=== PATIENT | female | born 1930 | race Caucasian/White ===

== ENCOUNTER 2017-10-21 19:46 | Inpatient (IN) | payer MEDICARE, OTHER ==
[2017-10-21 20:31] LABS: #Lymphocytes 1.3 thou/uL (1.20-3.40); #Monocytes 0.7 thou/uL (0.11-0.59); #Neutrophils 9.3 thou/uL (1.40-6.50); %Basophils 0.2 % (0.0-1.0); %Eosinophils 0.3 % (0.0-10.0); %Lymphocytes 11.7 % (21.0-51.0); %Monocytes 6.2 % (0.0-10.0); %Neutrophils 81.7 % (42.0-75.0); Hemoglobin 13.5 g/dL (12.0-16.0); Mean Corpuscular Hemoglobin 29.9 pg (27.0-31.0); Mean Corpuscular Volume 90.5 fL (78.0-98.0); Mean Platelet Volume 6.6 fL (7.4-10.4); Platelet Count 206 thou/uL (130-400); RBC Distribution Width 11.8 % (11.5-14.5); Red Blood Cell (RBC) Count 4.51 mill/uL (4.20-5.40); White Blood Cell (WBC) Count 11.4 thou/uL (4.8-10.8)
[2017-10-21] MEDS ORDERED: Dextrose 50% Abboject 50 ML SYRINGE SLOW IVP PRN (20:36)
[2017-10-21] MEDS ORDERED: Ondansetron ODT 4 MG TAB PO PRN (20:36)
[2017-10-21] MEDS ORDERED: Dextrose 5% in Water 1,000 ML IV PRN (20:36)
[2017-10-21] MEDS ORDERED: Ondansetron HCl/PF 4 MG/2 ML Vial IVP PRN (20:36)
[2017-10-21 20:38] LABS: INR-International Normal Ratio 1.1; PTT 25.5 SEC (22.9-36.1); Prothrombin Time 14.2 SEC (12.0-14.7)
[2017-10-21] MEDS ORDERED: hydrALAZINE 20 MG/ML VIAL SLOW IVP PRN (20:38)
[2017-10-21 20:52] LABS: ALT (SGPT) 16 U/L (8-55); AST (SGOT) 20 U/L (5-34); Albumin 4.4 g/dL (3.4-4.8); Alkaline Phosphatase 71 U/L (40-150); Anion Gap 13 mmol/L (10-20); BUN (Urea Nitrogen) 21 mg/dL (9.8-20.1); Bilirubin, Total 1.6 mg/dL (0.2-1.2); Calc. Creatinine Clearance 0 mL/min (70-130); Calcium 9.5 mg/dL (7.8-10.44); Carbon Dioxide 25 mmol/L (23-31); Chloride 108 mmol/L (98-107); Estimated GFR-MDRD 51; Globulin 2.7 g/dL (2.4-3.5); Glucose 105 mg/dL (83-110); Protein, Total 7.1 g/dL (6.0-8.3); Sodium 142 mmol/L (136-145)
[2017-10-21 21:02] LABS: CKMB 1.2 ng/mL (0-6.6); Troponin I Less than 0.010 ng/mL (< 0.028)
[2017-10-21] MEDS: Senokot S 8.6-50 MG TAB PO SCH (22:07)
[2017-10-21] MEDS: traMADol HCl 50 MG TAB PO SCH (22:07)
[2017-10-21] MEDS: Sodium Chloride 0.9% 1,000 ML IV SCH (22:14)
[2017-10-22] MEDS: Ketorolac Tromethamine 30 MG/ML VIAL IVP SCH ×4 (00:06→17:41)
[2017-10-22] MEDS: Acetaminophen 1,000 MG in Premix Bag 1 BAG IVPB SCH ×4 (00:07→17:41)
--- NOTE | 2017-10-22 03:44 | HP ---
DATE OF ADMISSION: 10/21/2017 ATTENDING PHYSICIAN: Dr. Karthik Hahn. TRAUMA ACTIVATION: Not applicable. HISTORY OF PRESENT ILLNESS: This is an 87-year-old female who presented to [facility] as a transf er from [facility]. Per patient, she was working in her garden when she slipped and fe ll landing on her right side. Patient denies any head trauma or loss of consciousness. She was eval uated at [facility], found to have a right subcapital femoral fracture. She was transf erred to [facility] for higher level of care. Orthopedic Surgery was notified and Trauma Se rvices was asked to admit. Upon my evaluation, the patient has a chief complaint of right hip pain a pproximately 3/10, worse with movement, improved with staying still on pain medications. ALLERGIES: None. PAST MEDICAL HISTORY: Hypertension, colon cancer status post resection, left eye blindness, status p ost glaucoma surgery. Of note, the patient had a right ankle sprain approximately 3 weeks ago that w as evaluated and found to be soft tissue sprain, there was no bony injury and patient has been able t o ambulate on it without difficulty. HOME MEDICATIONS: Include metoprolol 50 mg p.o. daily. PAST SURGICAL HISTORY: Significant for colon resection, left eye surgery, and left wrist surgery. SOCIAL HISTORY: Patient lives at home with her daughter. She ambulates independently. Reports occa sional/social alcohol use. She is a nonsmoker and denies illicit drug use. FAMILY HISTORY: Significant for mother from cancer, unknown type. Father from col on cancer, brother with coronary artery disease. REVIEW OF SYSTEMS: Ten point review of systems was performed and essentially negative except as asiya cated in the HPI. Specifically, the patient denied any fevers, chills, nausea, vomiting, chest pain, shortness of breath, dizziness, lightheadedness, syncope, or presyncopal symptoms. PHYSICAL EXAMINATION: VITAL SIGNS: Temperature 97.7, pulse 75, respirations 14, O2 sat 94% on room air, blood pressure 181 /64. GENERAL: Well-developed elderly female in no acute distress, resting in bed. HEAD: Normocephalic, atraumatic. EYES: Extraocular movements are intact. She is unable to completely open her left eyelid. NECK: Supple. Trachea is midline. There is no midline tenderness to palpation. CHEST: Atraumatic, nontender to palpation. Normal work of breathing. Symmetric rise. CARDIOVASCULAR: Regular rate and rhythm. No obvious murmurs, rubs, or gallops. GASTROINTESTINAL: Abdomen is atraumatic, soft, nontender, nondistended. Bowel sounds are positive. MUSCULOSKELETAL: Back exam is reported as being within normal limits. Pelvis is stable. EXTREMITIES: There is tenderness to palpation over the right hip. Right lower extremity range of mo tion limited secondary to pain. She is neurovascularly intact distal to the side of her injury. Pul ses are 2+ bilaterally. Bilateral upper extremities within normal limits. Left lower extremity with in normal limits. Her right ankle with some ecchymosis and swelling. NEUROLOGIC: No focal deficit is noted. GCS is 15. LABORATORY FINDINGS: WBC 11.4, hemoglobin 13.5, hematocrit 40.9, platelet count 206. Sodium 142, po tassium 4.4, chloride 109, carbon dioxide 24, BUN 23.5, creatinine 1.1, glucose 139. Total bilirubin 1.7, AST 21, ALT 16, alkaline phosphatase 69. RADIOLOGIC FINDINGS: EKG with nonspecific T-wave abnormalities, normal sinus rhythm, QTC 416. Chest x-ray at [facility] was read as being without acute cardiopulmonary process. X-ray of the right hip demonstrated a subcapital right femur fracture. ASSESSMENT: 1. Status post mechanical fall. 2. Right subcapital femur fracture. 3. Acute traumatic pain. 4. History of hypertension. PLAN: Admit to Trauma Services. I have discussed the case with the ER physician, Orthopedic Surgery. Dr. Peck will see and evaluate the patient. He plans for likely operative intervention in the [facility]. The patient should be n.p.o. after midnight. Perioperative analgesia with p.o. and IV analgesic s. Postoperative PT and OT. DVT and gastritis prophylaxis as appropriate. Plans for admission were discussed with the patient, who vocalized her understanding. All questions were answered at the renée e of this dictation. The patient is a FULL CODE. Trauma attending has been notified of admission.
[2017-10-22 05:17] LABS: #Eosinphils 0.2 thou/uL (0.0-0.7); #Lymphocytes 1.4 thou/uL (1.20-3.40); #Monocytes 0.6 thou/uL (0.11-0.59); #Neutrophils 6.4 thou/uL (1.40-6.50); %Basophils 0.4 % (0.0-1.0); %Eosinophils 1.9 % (0.0-10.0); %Lymphocytes 16.7 % (21.0-51.0); %Monocytes 6.9 % (0.0-10.0); %Neutrophils 74.2 % (42.0-75.0); Hemoglobin 11.8 g/dL (12.0-16.0); Mean Corpuscular HGB CONC 34.7 g/dL (32.0-36.0); Mean Corpuscular Hemoglobin 31.1 pg (27.0-31.0); Mean Corpuscular Volume 89.6 fL (78.0-98.0); Mean Platelet Volume 6.2 fL (7.4-10.4); Platelet Count 166 thou/uL (130-400); RBC Distribution Width 11.8 % (11.5-14.5); White Blood Cell (WBC) Count 8.6 thou/uL (4.8-10.8)
[2017-10-22] MEDS: traMADol HCl 50 MG TAB PO SCH ×4 (05:34→21:57)
[2017-10-22 05:42] LABS: Anion Gap 11 mmol/L (10-20); BUN (Urea Nitrogen) 18 mg/dL (9.8-20.1); Calc. Creatinine Clearance 54 mL/min (70-130); Calcium 8.4 mg/dL (7.8-10.44); Carbon Dioxide 24 mmol/L (23-31); Chloride 108 mmol/L (98-107); Estimated GFR-MDRD 67; Glucose 94 mg/dL (83-110); Magnesium 1.8 mg/dL (1.6-2.6); Phosphorus 3.6 mg/dL (2.3-4.7); Potassium 3.6 mmol/L (3.5-5.1); Sodium 139 mmol/L (136-145)
[2017-10-22] MEDS ORDERED: CEFAZOLIN/Water 2 GM/20 ML SYRINGE SLOW IVP SCH (07:30)
[2017-10-22] MEDS: Polyethylene Glycol 3350 17 GM Packet PO SCH (07:55)
[2017-10-22] MEDS: Famotidine 20 MG TAB PO SCH (07:55)
[2017-10-22] MEDS: Senokot S 8.6-50 MG TAB PO SCH ×2 (07:55→22:00)
--- NOTE | 2017-10-22 08:11 | CON ---
DATE OF CONSULTATION: 10/22/2017 CHIEF COMPLAINT: Right hip pain. HISTORY OF PRESENT ILLNESS: Ms. Tobias is an 87-year-old female who fell in her garden yesterday. She was out working when she lost her balance around a water hose. She landed on her right side. S he was able to stand, but could not ambulate. She had her daughter with her to assist her. She was eventually taken to [facility] by EMS. A right femoral neck fracture was identified. She wa s transferred to [facility] for further care. The patient has been admitted to the hospital . She has been comfortable. She has received pain medication. No other injuries. She has been hea lthy and active recently. ALLERGIES: None. PAST MEDICAL HISTORY: Hypertension, history of colon cancer, status post resection, previous glaucom a surgery. She has had a previous right distal radius fracture. PAST SURGICAL HISTORY: Colon resection, glaucoma eye surgery, and right distal radius fracture surge ry. SOCIAL HISTORY: The patient lives independently. She does have her daughter with her. She denies s moking, alcohol or drug use. FAMILY MEDICAL HISTORY: Noncontributory. REVIEW OF SYSTEMS: Positive for right hip pain with movement as per HPI, otherwise negative 10-point review of systems. IMAGES: X-rays of the right hip demonstrate a nondisplaced femoral neck fracture, subcapital. This is acute. There is no significant impaction. PHYSICAL EXAMINATION: VITAL SIGNS: Temperature is 97.5, pulse is 64, respiratory 18, 96% on room air, blood pressure is 15 4/59. GENERAL: She is alert and oriented, in no apparent distress. HEENT: Normocephalic, atraumatic. ABDOMEN: Soft, nontender, nondistended. RESPIRATORY: Breathing comfortably. CARDIOVASCULAR: Pulse are palpable and regular. MUSCULOSKELETAL: The patient's right lower extremity has pain with motion. She is able flex and ext end the foot and ankle. She has a palpable dorsalis pedis pulse. Sensation intact distally. IMPRESSION: Right femoral neck fracture, nondisplaced. PLAN: At this point, the patient will go to the operating room today for percutaneous screw fixation of the right femoral neck. We will treat her with appropriate DVT prophylaxis and antibiotic prophy laxis. She will have physical therapy to mobilize postoperatively. I have reviewed the risks and be nefits. Risks do include avascular necrosis, collapse, nonunion, malunion, wound complication, hardw are prominence and others. She is aware that if she has collapse of the femoral head she would need to have a hip replacement in the future.
[2017-10-22] MEDS ORDERED: Prevnar 13-Val Conj/PF 0.5 ML SYRINGE IM ONE (09:00)
[2017-10-22] MEDS: Sodium Chloride 0.9% 1,000 ML IV SCH ×2 (09:57→22:00)
--- NOTE | 2017-10-22 11:23 | PRG ---
DATE OF SERVICE: 10/22/2017 ATTENDING PHYSICIAN: Dr. Javier Mcgraw SUBJECTIVE: Ms. Tobias is an 87-year-old female who was in her garden yesterday when she was attem pting to move a water hose and slipped on the wet grass landing on her right side. She sustained a r ight subcapital femur fracture. She was admitted to the hospital by Trauma Services. Orthopedic con sult was obtained. The plan is for her to go to the OR today. She reports pain has been well contro lled. OBJECTIVE: VITAL SIGNS: Temperature 97.3, pulse 58, respirations 16, O2 sat 92% room air, blood pressure 145/60 . GENERAL: Elderly female lying in bed in no acute distress. HEENT: Atraumatic, normocephalic. CARDIOVASCULAR: Regular rate and rhythm. PULMONARY: Bilateral breath sounds clear. No respiratory distress. Patient is obtaining approximat sara 1250 mL incentive spirometry volumes. ABDOMEN: Soft, nontender, nondistended. EXTREMITIES: Cap refill brisk in all extremities. Neurovascularly intact. NEUROLOGIC: GCS 15. Awake, alert, oriented x3. ASSESSMENT: 1. Status post ground level fall. 2. Left subcapital hip fracture. 3. Acute traumatic pain, well controlled. PLAN: 1. Continue current pain regimen. 2. Plan for OR today with Dr. Peck. 3. Rehab referral. 4. Case management for discharge planning. 5. Patient lives at home with her daughter. Daughter is at bedside. Plan of care was discussed wit h the patient and daughter. All questions were answered. The patient was seen and examined with Dr. Mcgraw who agrees with the plan.
[2017-10-22] MEDS ORDERED: Lidocaine 1% PF 5 ML VIAL ONE (14:55)
[2017-10-22] MEDS ORDERED: Dexamethasone 20 MG/5 ML VIAL ONE (14:55)
[2017-10-22] MEDS ORDERED: PROPOFOL 200 MG/20 ML VIAL ONE (14:55)
[2017-10-22] MEDS ORDERED: Ondansetron HCl/PF 4 MG/2 ML Vial ONE (14:55)
[2017-10-22] MEDS ORDERED: Glycopyrrolate 0.2 MG/ML 5 ML SYRINGE ONE (14:55)
[2017-10-22] MEDS ORDERED: Fentanyl 100 MCG/2 ML VIAL ONE (15:53)
[2017-10-22] MEDS ORDERED: Promethazine HCl 25 MG/ML VIAL IM PRN (17:00)
[2017-10-22] MEDS ORDERED: Ondansetron HCl/PF 4 MG/2 ML Vial IVP PRN (17:00)
[2017-10-22] MEDS ORDERED: Promethazine HCl 25 MG/ML VIAL SLOW IVP PRN (17:00)
[2017-10-22] MEDS ORDERED: Meperidine HCl/PF 25 MG/ML VIAL SLOW IVP PRN (17:00)
--- NOTE | 2017-10-22 17:23 | RAD ---
INTRAOPERATIVE FLUOROSCOPY: 10/22/17 HISTORY: Fracture. Internal fixation. COMPARISON: None. EXPOSURE: 35.3 seconds. 4.95 mGy. FINDINGS: Three fluoroscopic images demonstrate placement of three screws traversing the right hip fracture. Al ignment is near anatomic. IMPRESSION: Right hip fracture. Near anatomic alignment. POS: [facility]
[2017-10-22 20:25] LABS: #Eosinphils 0.2 thou/uL (0.0-0.7); #Lymphocytes 0.8 thou/uL (1.20-3.40); #Monocytes 0.3 thou/uL (0.11-0.59); %Basophils 0.2 % (0.0-1.0); %Eosinophils 1.4 % (0.0-10.0); %Lymphocytes 6.7 % (21.0-51.0); %Monocytes 2.3 % (0.0-10.0); %Neutrophils 89.4 % (42.0-75.0); Hemoglobin 13.4 g/dL (12.0-16.0); Mean Corpuscular HGB CONC 34.8 g/dL (32.0-36.0); Mean Corpuscular Hemoglobin 31.9 pg (27.0-31.0); Mean Corpuscular Volume 91.6 fL (78.0-98.0); Mean Platelet Volume 6.4 fL (7.4-10.4); Platelet Count 172 thou/uL (130-400); RBC Distribution Width 11.9 % (11.5-14.5); White Blood Cell (WBC) Count 11.2 thou/uL (4.8-10.8)
[2017-10-22 20:48] LABS: Anion Gap 15 mmol/L (10-20); BUN (Urea Nitrogen) 17 mg/dL (9.8-20.1); Calc. Creatinine Clearance 54 mL/min (70-130); Calcium 8.8 mg/dL (7.8-10.44); Carbon Dioxide 19 mmol/L (23-31); Chloride 108 mmol/L (98-107); Estimated GFR-MDRD 68; Glucose 105 mg/dL (83-110); Magnesium 1.9 mg/dL (1.6-2.6); Phosphorus 3.2 mg/dL (2.3-4.7); Potassium 4.1 mmol/L (3.5-5.1); Sodium 138 mmol/L (136-145)
[2017-10-22 20:50] LABS: CKMB 2.5 ng/mL (0-6.6); Troponin I 0.128 ng/mL (< 0.028)
--- NOTE | 2017-10-22 20:57 | OP ---
DATE OF OPERATION: 10/22/2017 OPERATION: Percutaneous screw fixation of right femoral neck fracture. PREOPERATIVE DIAGNOSIS: Displaced right femoral neck fracture. POSTOPERATIVE DIAGNOSIS: Displaced right femoral neck fracture. COMPLICATIONS: None. ESTIMATED BLOOD LOSS: Minimal. SURGEON: Skinny Peck M.D. ANESTHESIA: General. IMPLANTS: Synthes 7.3 mm cannulated screws x3. INDICATIONS: Ms. Tobias is an 87-year-old female who fell. She fractured her femoral neck. She w as indicated for percutaneous screw fixation of the femoral neck to restore anatomic alignment and pr omote healing. Risks have been reviewed in detail. Risks do include avascular necrosis, hardware fa ilure, nonunion, infection, pain, scarring, and others. DESCRIPTION OF PROCEDURE: Ms. Tobias was identified in the preoperative holding area. Her correct extremity was marked. She was carried to the operating room. She was positioned supine. General a nesthesia was induced. A multidisciplinary timeout was performed. The right lower extremity was pre pped and draped in sterile fashion. We began the procedure with intraoperative evaluation of the fracture with x-ray. We identified the fracture and pulled gentle traction. The fracture was well reduced. At this point, we made a small incision over the thigh. We dissected down through the subcutaneous tissues to the bone. We then in serted three guidewires in an inverted triangle pattern. These were placed using intraoperative guid ance. At this point, we proceeded with over drilling our guidewires. We measured and appropriate le ngth. We then placed three 7.3 mm cannulated screws. These transfix the fracture appropriately. At this point, we took final images. We then irrigated the wound and closed with 0 Vicryl suture and s taples to the skin. A sterile dressing was applied. The patient was taken to the recovery room in g ood condition without complication.
[2017-10-22] MEDS: CEFAZOLIN/Water 2 GM/20 ML SYRINGE SLOW IVP SCH (22:00)
[2017-10-23] MEDS: Acetaminophen 1,000 MG in Premix Bag 1 BAG IVPB SCH (00:55)
[2017-10-23] MEDS: Ketorolac Tromethamine 30 MG/ML VIAL IVP SCH ×2 (00:55→05:57)
[2017-10-23 01:03] LABS: CKMB 2.4 ng/mL (0-6.6)
[2017-10-23] MEDS: traMADol HCl 50 MG TAB PO SCH (03:36)
[2017-10-23 03:45] LABS: Magnesium 1.9 mg/dL (1.6-2.6); Phosphorus 3.1 mg/dL (2.3-4.7)
[2017-10-23 03:49] LABS: #Lymphocytes 0.6 thou/uL (1.20-3.40); #Monocytes 0.2 thou/uL (0.11-0.59); #Neutrophils 8.3 thou/uL (1.40-6.50); %Basophils 0.1 % (0.0-1.0); %Eosinophils 0.3 % (0.0-10.0); %Monocytes 1.7 % (0.0-10.0); %Neutrophils 90.9 % (42.0-75.0); Hemoglobin 12.5 g/dL (12.0-16.0); Mean Corpuscular HGB CONC 34.3 g/dL (32.0-36.0); Mean Corpuscular Hemoglobin 31.2 pg (27.0-31.0); Mean Platelet Volume 6.7 fL (7.4-10.4); Platelet Count 170 thou/uL (130-400); RBC Distribution Width 12.1 % (11.5-14.5); Red Blood Cell (RBC) Count 4.02 mill/uL (4.20-5.40); White Blood Cell (WBC) Count 9.1 thou/uL (4.8-10.8)
[2017-10-23] MEDS: CEFAZOLIN/Water 2 GM/20 ML SYRINGE SLOW IVP SCH ×3 (05:57→21:41)
[2017-10-23] MEDS: Sodium Chloride 0.9% 1,000 ML IV SCH (05:59)
[2017-10-23 06:16] LABS: Anion Gap 9 mmol/L (10-20); BUN (Urea Nitrogen) 16 mg/dL (9.8-20.1); Calc. Creatinine Clearance 54 mL/min (70-130); Carbon Dioxide 22 mmol/L (23-31); Chloride 109 mmol/L (98-107); Estimated GFR-MDRD 68; Glucose 133 mg/dL (83-110); Potassium 4.1 mmol/L (3.5-5.1); Sodium 136 mmol/L (136-145)
[2017-10-23 06:21] LABS: CKMB 2.1 ng/mL (0-6.6); Troponin I 0.128 ng/mL (< 0.028)
[2017-10-23] MEDS ORDERED: Furosemide 20 MG/2 ML VIAL SLOW IVP SCH ×2 (07:00)
[2017-10-23 07:45] LABS: Magnesium 1.7 mg/dL (1.6-2.6); Phosphorus 3.3 mg/dL (2.3-4.7)
[2017-10-23] MEDS ORDERED: Acetaminophen 500 MG TAB PO PRN (08:13)
[2017-10-23] MEDS: Polyethylene Glycol 3350 17 GM Packet PO SCH (09:03)
[2017-10-23] MEDS: Famotidine 20 MG TAB PO SCH (09:03)
[2017-10-23] MEDS: traMADol HCl 50 MG TAB PO PRN (09:03)
[2017-10-23] MEDS: Senokot S 8.6-50 MG TAB PO SCH ×2 (09:04→21:00)
[2017-10-23] MEDS: Ibuprofen 600 MG TAB PO SCH ×2 (09:06→16:21)
--- NOTE | 2017-10-23 11:44 | PRG ---
DATE OF SERVICE: 10/23/2017 ATTENDING PHYSICIAN: Dr. Javier Mcgraw. SUBJECTIVE: Ms. Tobias is a 89-year-old female, who had a ground level fall 2 days ago, sustaining a right subcapital femur fracture. She is postoperative day #1, status post percutaneous screw fixa tion of the right femoral neck fracture. Last p.m., she had an episode of bradycardia to the 50s pos toperatively. She was asymptomatic. Blood pressure remained stable. Metoprolol was stopped. Labor atory studies and EKG were done. Echocardiogram is pending this morning. Metoprolol has been held. Cardiology consult was requested. This morning, she reports she is pain free. OBJECTIVE: VITAL SIGNS: Temperature 97.3, pulse 48, respirations 14, O2 sat 99% on 1 liter nasal cannula, and b lood pressure 132/49. GENERAL: Elderly female lying in bed in no acute distress. HEENT: Head is atraumatic, normocephalic. HEART: Bradycardic at 48 beats per minute and regular. PULMONARY: Bilateral breath sounds clear. No respiratory distress. Approximately 1046-1424 mL mary ellen ntive spirometry volumes are being obtained by patient. ABDOMEN: Soft, nontender, nondistended. EXTREMITIES: Cap refill brisk in all extremities. Neurovascularly intact. NEUROLOGIC: GCS of 15. LABORATORY DATA: CBC: WBC 9.1, RBC 4.02, hemoglobin 12.5, hematocrit 36.6, platelets 170. Chemistr y: Sodium 136, potassium 4.1, chloride 109, carbon dioxide 22, BUN 16, creatinine 0.80, glucose 133, calcium 8.0, phosphorus 3.3, magnesium 1.7, CK-MB 2.1, troponin 0.128. BNP 7-8.0. ASSESSMENT: 1. Status post ground level fall. 2. Left subcapital hip fracture. 3. Postoperative day #1, status post fixation of hip fracture. 4. New onset congestive heart failure, postoperative. 5. Asymptomatic bradycardia. PLAN: 1. Continue PT, OT as ordered. 2. Echocardiogram pending. 3. Cardiology consult pending. 4. Decreased metoprolol dose. Metoprolol will be changed from 50 mg XL to 25 mg b.i.d. beginning to night. 5. Lasix administered this morning. Monitor output. 6. Serial labs. 7. Case management for discharge planning. The patient lives at home with her daughter. Anticipate patient will need rehab or [facility]. The patient was seen and examined with Dr. Mcgraw, who agrees with plan.
--- NOTE | 2017-10-23 15:08 | RAD ---
PORTABLE CHEST 1 VIEW: Date: 10/23/17 Time: 1428 hours HISTORY: CHF. FINDINGS/IMPRESSION: The heart size is borderline. The aorta is tortuous. The lungs are expanded without focal areas of c onsolidation, pneumothoraces, marquise pulmonary edema, or pleural effusions. POS: [facility]
[2017-10-23] MEDS ORDERED: cloNIDine 0.1 MG TAB PO PRN (18:34)
[2017-10-23] MEDS ORDERED: Amlodipine 5 MG TAB PO SCH (18:45)
[2017-10-23] MEDS ORDERED: Metoprolol Tartrate 25 MG TAB PO SCH ×2 (21:00)
--- NOTE | 2017-10-24 00:07 | CON ---
DATE OF CONSULTATION: 10/23/2017 DATE OF ADMISSION: 10/21/2017 INDICATION FOR CONSULTATION: An 87-year-old female who recently suffered a right femur fracture and underwent pinning and then was noted to have bradycardia and also had slight indeterminate cardiac en zymes as well as an elevation of the BNP. We were asked to see her due to possible heart failure. S he appears to be very comfortable. She has had no history of congestive heart failure in the past. She was seen several years ago by local train operations supervisor here in town and underwent a preop evaluation pr ior to having surgery for colon cancer. At that time, she was told she had a normal stress test. Tatum barbosa also had an echocardiogram and was told that she has a leaky valve. Indeed today, she had a repeat echocardiogram performed, which shows that she does have [id number] aortic valve regurgitation but has a normal left ventricular systolic function. Her ejection fraction is 60% to 65%. She also had some very mild mitral valve regurgitation. The heart does not have any evidence of diastolic dy sfunction. She has been doing very well. She has no complaints. It was also noted that she had silas e bradycardia during the night last night. Her heart rate dropped down to 50s and actually says it d ropped down to the 30s when she was watching her, but otherwise she has remained completely asymptoma tic. She does have a history of hypertension, which has been somewhat difficult to control. She has been on beta-blockers that may be part of the etiology of the bradycardia. This just also she may h ave sleep apnea endorses she had sometime she does complain of wakes up at night and does snore a lot and so she may have sleep apnea, but she has not been interested in undergoing evaluation apparently in the past, but this may actually help somewhat if should she undergo the procedure and we found to have sleep apnea this could help the blood pressure as well as the heart rate. At this time, I will stop the beta blockers. We will start her on amlodipine for the blood pressure and also add clonidi ne p.r.n. as needed with her aortic valve regurgitation. The hypertension will obviously not improve this and may actually contribute to some congestive heart failure, but at this time the ejection fra ction is normal and the left ventricle does not appear to be dilated. PAST MEDICAL HISTORY, SOCIAL HISTORY, FAMILY HISTORY, REVIEW OF SYSTEMS, MEDICATIONS: Please refer t o notes dictated by the nurse practitioner. I would agree with her assessment. PHYSICAL EXAMINATION: GENERAL: Reveals an elderly lady who is in no acute distress at this time. She is very pleasant. S he is alert and oriented. VITAL SIGNS: Her blood pressure is elevated at 201/48. Her heart rates in the 60s and shows sinus r hythm. She is afebrile, respiratory rate 16. HEENT: Shows the head to be normocephalic and atraumatic. She has a left prosthetic eye. Carotid p ulses are present. I did not hear any bruits. CHEST: Clear to auscultation without rales, rhonchi, or wheezing. CARDIOVASCULAR: Exam reveals a regular rate and rhythm. She does have a diastolic murmur compatible with aortic valve regurgitation over the upper left sternal border. She also had a very soft systol ic murmur at the apex. ABDOMEN: Soft and nontender. Positive bowel sounds are present. EXTREMITIES: Showed no clubbing, cyanosis, or edema. Pedal pulses are present. NEUROLOGIC: She appears to be fully intact. LABORATORY DATA: Her laboratory data shows a hemoglobin of 12.5 with a hematocrit of 36.6, WBC of 9. 1, platelet count was normal at 170. Her sodium was 136, potassium is 4.1. Her BUN was 16 with a cr eatinine of 0.8. The troponin I was indeterminate at 0.11 increased to 0.128. Previously earlier in her hospitalization, it has also been less than 0.01 and increased up to 0.128 and BNP was elevated at 728. The cardiac enzymes are indeterminate, this may be due to stressful situation or mild hypoxe kevin, but there is no indication that the patient suffered a myocardial infarction. Her MBs are negat april. The elevation of the BNP may be due to slight volume overload. Otherwise, she may have some de gree of diastolic dysfunction, but I cannot elicit that on the echocardiogram today. Otherwise, I be lieve she is stable from a cardiac standpoint, she may eventually need to undergo repeat stress testi ng, but would not advise at this time since she is asymptomatic and EKGs also does not indicate any e vidence of ischemia. We would be more than happy to follow the patient with you throughout her hospi mario course and tried to see whether or not this improves. IMPRESSION: 1. Bradycardia, which is asymptomatic and would not treat this in time except to hold the beta block ers and changed to amlodipine and clonidine for p.r.n. use on the clonidine. 2. Aortic valve regurgitation. This does not appear to be a problem at this time. She has a normal ejection fraction. There is no evidence of left ventricular dilatation, but to lower the blood pres sure would certainly help the situation with her aortic valve regurgitation. There is no evidence of aortic valve stenosis. 3. Status post hip fracture. She remains stable. She actually ambulated today. She is doing quite well. 4. History of colon cancer, there has been no indication that she has had any recurrence. Thank you very much for the consultation.
[2017-10-24] MEDS: Ibuprofen 600 MG TAB PO SCH ×2 (00:44→09:19)
[2017-10-24] MEDS: traMADol HCl 50 MG TAB PO PRN (04:01)
[2017-10-24 05:31] LABS: #Eosinphils 0.3 thou/uL (0.0-0.7); #Lymphocytes 1.8 thou/uL (1.20-3.40); #Monocytes 0.5 thou/uL (0.11-0.59); #Neutrophils 5.6 thou/uL (1.40-6.50); %Basophils 0.4 % (0.0-1.0); %Eosinophils 4.1 % (0.0-10.0); %Lymphocytes 21.7 % (21.0-51.0); %Monocytes 6.1 % (0.0-10.0); %Neutrophils 67.8 % (42.0-75.0); Hemoglobin 11.3 g/dL (12.0-16.0); Mean Corpuscular HGB CONC 33.4 g/dL (32.0-36.0); Mean Corpuscular Hemoglobin 30.3 pg (27.0-31.0); Mean Corpuscular Volume 90.6 fL (78.0-98.0); Mean Platelet Volume 6.9 fL (7.4-10.4); Platelet Count 193 thou/uL (130-400); Red Blood Cell (RBC) Count 3.72 mill/uL (4.20-5.40); White Blood Cell (WBC) Count 8.2 thou/uL (4.8-10.8)
[2017-10-24 05:37] LABS: Anion Gap 14 mmol/L (10-20); BUN (Urea Nitrogen) 18 mg/dL (9.8-20.1); Calc. Creatinine Clearance 50 mL/min (70-130); Calcium 8.9 mg/dL (7.8-10.44); Carbon Dioxide 22 mmol/L (23-31); Chloride 109 mmol/L (98-107); Estimated GFR-MDRD 62; Glucose 92 mg/dL (83-110); Magnesium 1.8 mg/dL (1.6-2.6); Phosphorus 2.1 mg/dL (2.3-4.7); Potassium 3.7 mmol/L (3.5-5.1); Sodium 141 mmol/L (136-145)
[2017-10-24] MEDS: CEFAZOLIN/Water 2 GM/20 ML SYRINGE SLOW IVP SCH (06:35)
--- NOTE | 2017-10-24 08:57 | CON ---
DATE OF CONSULTATION: 10/23/2017 There are no primary care doctor providers on the list. The patient's main polish maker is Dr. Calderon at the [facility]. REFERRING PHYSICIAN: William Guthrie PA-C REASON FOR CARDIOLOGY CONSULTATION: Bradycardia and possible congestive heart failure. HISTORY OF PRESENT ILLNESS: Ms. Tobias is a very pleasant [id number] female with significant medical history of hypertension, history of colon cancer with resection in 2010. The patient underwent percutaneous screw fixation of right femoral neck fracture by Dr. Peck on 10/22/2017. The patient was found to have a BNP to 728 and her heart rates went down to 49 in the middle of the night after the surgery. Due to those reasons, Cardiology consult was ordered. During the initial Cardiology consult and assessment, the patient denied any dizziness, lightheadedness, near syncopal episode, chest pain , discomfort in her chest, palpitation, fluttering, shortness of breath, fatigue , or any other cardiac complaints at this moment. When she fell in her garden on 10/21/2017, the patient stated that she lost her balance, but she denies any dizziness, lightheadedness, or near syncopal episode during that episode. She had seen Dr. Calderon at the [facility] for preop surgical clearance in 02/2017. She had an echocardiogram, which was normal per the patient and the patient's daughter. She also had a stress test about 5-[address] Calderon. She was told the pressure on the stress test was normal at that time. She had echocardiogram done today, which shows ejection fraction of 60%-65%, mild mitral valve regurgitation, nkmi-cp-djxizycg aortic valve regurgitation, zqtqwdae-me-owhzuq tricuspid regurgitation, and mild pulmonary regurgitation. PAST MEDICAL HISTORY: Hypertension, history of colon cancer. PAST SURGICAL HISTORY: 1. Colon resection in 2010. 2. Left glaucoma eye surgery. 3. Right distal radial fracture surgery. 4. Right cataract removed in 02/2017. FAMILY HISTORY: The patient's father was due to cirrhosis in the liver. The patient's mother due to uterus and colon cancer. The patient's brother due to myocardial infarction and atrial fibrillation at the age of 66. SOCIAL HISTORY: She is a and she lives with her daughter, who live well. She denies smoking, ETOH, or drug abuse. She had been active until this episode. ALLERGIES: She has no known drug allergies. MEDICATIONS: She is on metoprolol succinate 50 mg once a day. REVIEW OF SYSTEMS: A 12-point review of systems is negative, unless otherwise mentioned in the HPI. Per daughter, she sometimes complain of constipation like once or twice a month. She has been very active at home. PHYSICAL EXAMINATION: VITAL SIGNS: Blood pressure 152/62, heart rate is 60, O2 sat 99% with room air , respiratory rate of 16, temperature 97.4. GENERAL: She is well developed, well nourished, without any acute distress. HEAD: Normocephalic, atraumatic. EYES: Extraocular muscle movements are intact. ENT: Nasal and oral mucosa are moist without lesion. NECK: Normal range of motion. There are some JVD present. Carotid pulse is present without thrill or bruit at this moment. RESPIRATORY: Clear to auscultate bilaterally. No wheezing, rales, or rhonchi noted. CARDIOVASCULAR: There are normal S1, S2. There are no S3 or S4. There are murmur to the left sternal border, but no thrill, rub, or bruit noted. There are 2+ pulses in bilateral lower extremities and there are mild edema in bilateral lower extremities. ABDOMEN: Soft and nontender. No mass to palpate. Bowel sounds are present. MUSCULOSKELETAL: The patient is able to move all extremities. The patient denied any claudication. SKIN: Warm and dry. She had a dressing, about 2 x 2 dressing to the right lateral hip. Otherwise, the patient does not have any bruise or lacerations. NEUROLOGIC: The patient is alert, oriented x4, awake. Normal affect. Nonfocal. PSYCHIATRIC: Mood and affect are normal. LABORATORY DATA: WBC 9.1, hemoglobin 12.5, hematocrit 36.6, platelet 170. PT 14.2, INR 1.1. Sodium of 136, potassium of 4.1, BUN is 16, creatinine 0.1 and 0.8, glucose 133, calcium 8, phosphorus 3.3, magnesium 1.7. CK-MB 2.4 and 2.1. Troponin 0.110 and 0.128. BNP is 728. Chest x-ray shows borderline heart size, tortuous arota. Echocardiogram was done today, which shows EF of 60%-65%, mild mitral valve regurgitation, mild-to- moderate aortic valve regurgitation, fvjpynke-wx-uonfjn tricuspid regurgitation , and mild pulmonary valve regurgitation. ASSESSMENT AND PLAN: 1. Possible congestive heart failure secondary to elevated BNP level, more than 700. The patient's echocardiogram shows normal EF and there is no diastolic dysfunction although the patient has lnjhhtou-pu-zqxscn tricuspid regurgitation possibly due to history of hypertension. The patient's daughter denied the patient having any complaint of shortness of breath, abdominal bloating, swelling to the bilateral lower extremities in the past. At this moment, the patient is on beta maureen, metoprolol tartrate 25 mg twice a day. If the patient's blood pressure is stable enough, we might like to start CYNDI inhibitor or ARB to control the patient's blood pressure at this moment. 2. Bradycardia. The patient's heart rate at this moment is about 60. According to the patient's daughter, the patient's heart rates have been more than 60s at home. When the patient's heart rates went down to 49 after the surgery, the patient was asymptomatic. We would like to continue to monitor her symptoms. If the patient is symptomatic, we would like to decrease the patient's metoprolol and start any other blood pressure medication. 3. Hypertension. The patient's blood pressure has been stable at this moment. At this moment, we would like to continue to monitor. Thank you very much for allowing the Cardiology Service to participate in the care of this patient. We will follow along with the patient's care team and make recommendation as appropriate. PERRY
[2017-10-24] MEDS ORDERED: Amlodipine 5 MG TAB PO SCH (09:00)
[2017-10-24] MEDS ORDERED: Aspirin 81 mg Enteric Coated Tablet PO SCH (09:00)
[2017-10-24] MEDS ORDERED: Bisacodyl 10 MG SUPP PR SCH (09:00)
[2017-10-24] MEDS ORDERED: Enoxaparin Sodium 30 MG/0.3 ML SYRINGE SC SCH (09:00)
[2017-10-24] MEDS: Famotidine 20 MG TAB PO SCH (09:16)
[2017-10-24] MEDS: Polyethylene Glycol 3350 17 GM Packet PO SCH (09:17)
[2017-10-24] MEDS: Senokot S 8.6-50 MG TAB PO SCH (09:17)
[2017-10-24 13:01] VITALS: BP 183/66; TEMP 97.8
--- NOTE | 2017-10-25 15:06 | EKG ---
Test Reason : STAT Blood Pressure : / mmHG Vent. Rate : 056 BPM Atrial Rate : 056 BPM P-R Int : 182 ms QRS Dur : 084 ms QT Int : 460 ms P-R-T Axes : 078 040 029 degrees QTc Int : 443 ms Sinus bradycardia Possible Anterior infarct (cited on or before 21-OCT-2017) Abnormal ECG When compared with ECG of 21-OCT-2017 20:07, (Unconfirmed) No significant change was found Confirmed by ANAI SOLORIO MD ([id number]) on 10/25/2017 3:05:51 PM Referred By: CAROLINE Confirmed By:ANAI SOLORIO MD
--- NOTE | 2017-10-25 15:22 | DIS ---
DATE OF ADMISSION: 10/21/2017 DATE OF DISCHARGE: 10/24/2017 DATE OF SURGERY: 10/22/2017 PREOPERATIVE DIAGNOSIS: Displaced right femoral neck fracture. POSTOPERATIVE DIAGNOSIS: Displaced right femoral neck fracture. PROCEDURE: The patient underwent percutaneous screw fixation of right femoral neck. HOSPITAL COURSE: Hospital stay was unremarkable. She was admitted to [place] [id number], where she worked with physical therapy, occupational therapy, and progressed quite well. By postop day #3, the patient wa s ready for discharge. DISCHARGE CONDITION: Good/stable. DISPOSITION: To rehab inpatient. FOLLOWUP: Followup would be in 10-14 days, sooner if there are problems or concerns. DISCHARGE MEDICATIONS: Given with usage instructions. Dr Rodriguez Tavarez PA-C for Dr. Skinny Peck M.D.
--- NOTE | 2017-10-29 08:29 | PQF ---
DIANA BAUM CHRISTOPHER E MD [id number] SURG B- [id number] CLINICAL DOCUMENTATION CLARIFICATION FORM: POST DISCHARGE DATE: 10/29/2017 ATTN: Dr. Peck Please exercise your independent, professional judgment in responding to the clarification form. Clinical indicators are provided on the bottom of this form for your review Please check appropriate box(s): HEART FAILURE: A. TYPE: [ ] Systolic / HFrEF [ ] Diastolic / HFpEF [ ] Combined Systolic / Diastolic B. ACUITY [ ] Acute [ ] Acute on Chronic [ ] Chronic [ ] Other diagnosis (please specify) [ ] Does not apply to this patient. Did not have this diagnosis. [ ] Unable to determine In addition, please specify: Present on Admission (POA): [ ] Yes [ ] No [ ] Unable to determine For continuity of documentation, please document condition throughout progress notes and discharge summary. Thank You. CLINICAL INDICATORS - SIGNS / SYMPTOMS / LABS Per 10/23 consult note (Dr. Lieberman): Found to have a BNP to 728 and her heart rates went down to 49 night after surgery. Ejection Fraction = 60-65% Possible congestive heart failure secondary to elevated BNP level, more than 700. The patient's echocardiogram shows normal EF and there is no diastolic dysfunction. Per 10/21 consult note (Dr. Baez): Possible congestive heart failure secondary to elevated BNP level, more than 700. Per 10/23 progress note ([facility] New onset congestive heart failure, postoperative. RISKS: Per H&P: Hypertension. TREATMENTS: Per medications: IV Lasix 10/23. This form is maintained as a part of the permanent medical record) 2014 [employer]. All Rights Reserved [email or web address] [phone] PERRY
--- NOTE | 2017-10-30 06:49 | PQF ---
DIANA BAUMJ LUIS [id number] SURG B- [id number] CLINICAL DOCUMENTATION CLARIFICATION FORM: POST DISCHARGE DATE: 10/30/2017 ATTN: Dr. Mcgraw Please exercise your independent, professional judgment in responding to the clarification form. Clinical indicators are provided on the bottom of this form for your review Please check appropriate box(s): HEART FAILURE: A. TYPE: [ x ] Systolic / HFrEF [ ] Diastolic / HFpEF [ ] Combined Systolic / Diastolic B. ACUITY [ x ] Acute [ ] Acute on Chronic [ ] Chronic [ ] Other diagnosis (please specify) [ ] Unable to determine In addition, please specify: Present on Admission (POA): [x ] Yes [ ] No [ ] Unable to determine For continuity of documentation, please document condition throughout progress notes and discharge summary. Thank You. CLINICAL INDICATORS - SIGNS / SYMPTOMS / LABS Per 10/23 consult note (Dr. Lieberman): Found to have BNP to 728 and her heart rates went down to 49 night after surgery. Ejection Fraction =60-65%. Possible congestive heart failure secondary to elevated BNP level, more than 700. The patient's echocardiogram shows normal EF and there is no diastolic dysfunction Per 10/21 consult note (Dr. Baez): Possible congestive heart failure secondary to elevated BNP level, more than 700. Per 10/23 progress note (PRANAV Fox) New onset congestive heart failure, postoperative. RISKS: Per H&P: Hypertension. TREATMENTS: Per medications: IV Lasix 10/23. (This form is maintained as a part of the permanent medical record) 2014 [employer]. All Rights Reserved Chelly [email or web address] [phone] MTDD
== END 2017-10-24 13:00 | DRG 480 ==
LOC: ERS 19:46 → SURG B 21:15
PROVIDERS: ADMIT Surgery; ATTEND Surgery
PROC: 0QS634Z Reposition Right Upper Femur with Internal Fixation Device, Percutaneous Approach (ICD-10-PCS; principal; 2017-10-22)
DX: S72.011A Unspecified intracapsular fracture of right femur, initial encounter for closed fracture (principal); I50.21 Acute systolic (congestive) heart failure; I10 Essential (primary) hypertension; G89.11 Acute pain due to trauma; H54.62 Unqualified visual loss, left eye, normal vision right eye; R00.1 Bradycardia, unspecified; Z85.038 Personal history of other malignant neoplasm of large intestine; Z79.899 Other long term (current) drug therapy; Z90.49 Acquired absence of other specified parts of digestive tract; W01.0XXA Fall on same level from slipping, tripping and stumbling without subsequent striking against object, initial encounter; Y92.007 Garden or yard of unspecified non-institutional (private) residence as the place of occurrence of the external cause
CPT/HCPCS: 36415; 71045; 76001; 80048; 80053; 82553; 83735; 83880; 84100; 84484; 85025; 85610; 85730; 86850; 86900; 86901; 90471; 90670; 93005; 93010; 93306; A4216; C1713; C1769; G0009; G0390; G8978-GP-CL; G8979-GP-CJ; G8987-GO-CK; G8988-GO-CI; J0131; J0360; J1100; J1650; J1885; J1940; J2001; J2270; J2405; J2704; J3010